=== PATIENT | female | born 1975 ===

== ENCOUNTER 2022-04-22 11:10 | Emergency (ER) | payer BC ==
[2022-04-22 11:47] VITALS: PULSE 78; TEMP 98.6; BMI 26.5
[2022-04-22] MEDS ORDERED: ACETAMINOPHEN 500 MG TABLET (FP) PO ONE (13:17)
[2022-04-22] MEDS ORDERED: ACETAMINOPHEN 325 MG TABLET (FP) ONE (13:43)
[2022-04-22 14:45] LABS: BASO % 0.6 % (0-2.0); EOS % 1.1 % (0-4.5); HEMATOCRIT 42.5 % (32.4-45.2); HEMOGLOBIN 13.7 GM/dL (10.7-15.3); LYMPH % 27.3 % (8-40); MCH 26.5 pg (25.7-33.7); MCHC 32.2 g/dl (32.0-36.0); MEAN CELL VOLUME 82.4 fl (80-96); MEAN PLT VOLUME 8.2 fl (7.5-11.1); MONO % 5.7 % (3.8-10.2); NEUT % 65.3 % (42.8-82.8); PLATELET COUNT 300 10^3/uL (134-434); RBC 5.16 M/mm3 (3.60-5.2); WHITE BLOOD COUNT 6.9 K/mm3 (4.0-10.0)
[2022-04-22 14:52] LABS: INR 0.98 (0.83-1.09); PROTHROMBIN TIME (PATIENT) 11.3 SEC (9.7-13.0)
[2022-04-22 14:55] LABS: ACTIVATED PTT 40.6 SECONDS (25.2-36.5)
[2022-04-22 15:08] LABS: ALBUMIN 4.2 g/dl (3.4-5.0); BLOOD UREA NITROGEN 9.6 mg/dL (7-18); CALCIUM 9.7 mg/dL (8.5-10.1); MAGNESIUM 2.4 mg/dL (1.8-2.4)
[2022-04-22 15:11] LABS: CREATININE 0.8 mg/dL (0.55-1.3)
[2022-04-22 15:13] LABS: BILIRUBIN,TOTAL 0.4 mg/dL (0.2-1); TOT PROT 7.8 g/dl (6.4-8.2)
[2022-04-22 15:17] LABS: N-TERMINAL BNP 49.6 pg/ml (5-125)
[2022-04-22 16:38] VITALS: BP 136/77; RESP 19
== END 2022-04-22 16:58 | disposition home or self-care (01) ==
LOC: JER 11:10
DX: R07.9 Chest pain, unspecified (principal)
CPT/HCPCS: 0241U-QW; 36415; 71046-TC-FY; 80053; 83735; 83880; 84484; 85025; 85610; 85730; 93005; 93010; 99285-25